=== PATIENT | male | born 1985 | race Caucasian/White ===

== ENCOUNTER 2025-08-29 09:14 | Inpatient (IN) | payer SELFPAY ==
[~2025-08-29] VITALS: Ht 175.3 cm; Wt 70.3 kg
[2025-08-29 09:17] VITALS: O2SAT 93
[2025-08-29] MEDS: SODIUM CHLORIDE 0.9% 1,000 ML IV ONE ×2 (09:57→12:10)
[2025-08-29 10:10] LABS: BASOPHILS % 0.3 % (0.0-2.0); EOSINOPHILS % 0.3 % (0.0-5.0); HEMATOCRIT. 41.9 % (42.0-52.0); HEMOGLOBIN. 13.9 g/dL (14.0-18.0); LYMPHOCYTES % 10.1 % (20.0-50.0); MEAN PLATELET VOLUME 8.4 fl (7.4-10.4); MONOCYTES % 7.1 % (2.0-8.0); NEUTROPHILS % 82.2 % (40.0-76.0); PLATELET 281 x1000/uL (130-400); RED BLOOD CELL COUNT 4.50 mill/uL (4.7-6.1); RED CELL DISTRIBUTION WIDTH 14.3 % (11.6-14.6)
[2025-08-29 10:21] LABS: CREATININE 0.7 mg/dL (0.6-1.3); TROPONIN I HIGH SENSITIVITY < 4 ng/L (3.0-53)
[2025-08-29 10:22] LABS: ASPARTATE AMINOTRANSFERASE 43 IU/L (<34); PROTEIN TOTAL 6.3 g/dL (6.0-8.3); UREA NITROGEN BLOOD 7 mg/dL (9-23)
[2025-08-29 10:23] LABS: BILIRUBIN DIRECT 0.2 mg/dL (<=3.0)
[2025-08-29 10:24] LABS: BILIRUBIN TOTAL 1.0 mg/dL (0.1-1.0)
[2025-08-29] MEDS ORDERED: DOCUSATE SODIUM 100MG CAPSULE PO PRN (12:00)
[2025-08-29] MEDS ORDERED: ONDANSETRON HCL 4MG/2ML INJ IV PRN (12:00)
[2025-08-29] MEDS ORDERED: IPRATROPIUM/ALBUTEROL 0.5-3(2.5)MG/3ML NEB HHN PRN (12:00)
[2025-08-29] MEDS ORDERED: CLONIDINE 0.1MG TABLET PO PRN (12:00)
[2025-08-29] MEDS ORDERED: ACETAMINOPHEN 325MG TABLET PO PRN ×2 (12:00)
[2025-08-29] MEDS ORDERED: GUAIFENESIN 200MG/10ML SUGAR FREE UDC PO PRN (12:00)
[2025-08-29] MEDS ORDERED: INSULIN REGULAR (HUMULIN R) 1000UNITS/10ML VIAL IV NR (12:30)
[2025-08-29] MEDS ORDERED: LORAZEPAM 1MG TABLET PO PRN (12:30)
[2025-08-29] MEDS ORDERED: DEXTROSE 50% WATER 50ML SYRINGE IV NR (12:30)
[2025-08-29 16:00] VITALS: BP 111/76; PULSE 73; RESP 17; TEMP 36.1; O2SAT 97
[2025-08-29] MEDS ORDERED: LORAZEPAM 2MG/ML UD SYRINGE IV PRN (16:15)
[2025-08-29] MEDS: DEXT 5%/0.9% NACL 1,000 ML IV SCH (16:15)
[2025-08-29 16:35] VITALS: BP 120/77; PULSE 68; RESP 17; TEMP 36.14
[2025-08-29] MEDS: ENOXAPARIN 40MG/0.4ML SYR SUBCUT SCH (17:00)
[2025-08-29] MEDS: DEXTROSE 50% WATER 50ML SYRINGE IV SCH (17:08)
[2025-08-29] MEDS: INSULIN REGULAR (HUMULIN R) 1000UNITS/10ML VIAL IV SCH (17:17)
[2025-08-29 20:00] VITALS: BP 128/58; PULSE 59; RESP 20; TEMP 36.3; O2SAT 99
[2025-08-30] VITALS: BP 91/62; PULSE 66; RESP 20; TEMP 36.4; O2SAT 98
[2025-08-30 04:00] VITALS: BP 115/63; PULSE 64; RESP 18; TEMP 36.5; O2SAT 97
[2025-08-30 06:03] LABS: BASOPHILS % 0.6 % (0.0-2.0); EOSINOPHILS % 1.2 % (0.0-5.0); HEMATOCRIT. 39.0 % (42.0-52.0); HEMOGLOBIN. 13.1 g/dL (14.0-18.0); LYMPHOCYTES % 20.3 % (20.0-50.0); MEAN PLATELET VOLUME 8.1 fl (7.4-10.4); MONOCYTES % 10.2 % (2.0-8.0); NEUTROPHILS % 67.7 % (40.0-76.0); PLATELET 279 x1000/uL (130-400); RED BLOOD CELL COUNT 4.27 mill/uL (4.7-6.1); RED CELL DISTRIBUTION WIDTH 14.2 % (11.6-14.6)
[2025-08-30 06:21] LABS: T4 FREE 1.15 ng/dL (0.89-1.76)
[2025-08-30 06:28] LABS: CREATININE 0.7 mg/dL (0.6-1.3)
[2025-08-30 06:29] LABS: TRIGLYCERIDE 44 mg/dL (0-150); UREA NITROGEN BLOOD 6 mg/dL (9-23)
[2025-08-30 06:30] LABS: LDL CHOLESTEROL 22 mg/dL (5-100)
[2025-08-30 08:00] VITALS: BP 108/73; PULSE 90; RESP 18; TEMP 36.1; O2SAT 98
[2025-08-30] MEDS: PANTOPRAZOLE SODIUM 40 MG/VIAL IV SCH (09:00)
[2025-08-30] MEDS: MULTIVITAMINS,THER W-MINERALS TABLET PO SCH (11:50)
[2025-08-30] MEDS: FOLIC ACID 1MG TABLET PO SCH (11:50)
[2025-08-30] MEDS: KCL 20MEQ/100ML PREMIX 100 ML IV SCH (11:51)
[2025-08-30] MEDS: THIAMINE HCL 100MG TABLET PO SCH (11:51)
[2025-08-30 12:00] VITALS: BP 107/60; PULSE 55; RESP 18; TEMP 36.1; O2SAT 98
[2025-08-30 16:00] VITALS: BP 103/57; PULSE 104; RESP 18; TEMP 36.2; O2SAT 97
[2025-08-30 20:00] VITALS: BP 118/73; PULSE 81; RESP 18; TEMP 36.6; O2SAT 99
[2025-08-31] VITALS: BP 113/73; PULSE 64; RESP 19; TEMP 36.8; O2SAT 98
[2025-08-31 04:00] VITALS: BP 116/71; PULSE 68; RESP 18; TEMP 36.9; O2SAT 95
[2025-08-31 07:45] LABS: BASOPHILS % 0.5 % (0.0-2.0); EOSINOPHILS % 0.5 % (0.0-5.0); HEMATOCRIT. 39.3 % (42.0-52.0); HEMOGLOBIN. 13.1 g/dL (14.0-18.0); LYMPHOCYTES % 9.7 % (20.0-50.0); MEAN PLATELET VOLUME 8.6 fl (7.4-10.4); MONOCYTES % 8.0 % (2.0-8.0); NEUTROPHILS % 81.3 % (40.0-76.0); PLATELET 283 x1000/uL (130-400); RED BLOOD CELL COUNT 4.26 mill/uL (4.7-6.1); RED CELL DISTRIBUTION WIDTH 14.2 % (11.6-14.6)
[2025-08-31 07:56] LABS: CREATININE 0.7 mg/dL (0.6-1.3); UREA NITROGEN BLOOD < 5 mg/dL (9-23)
[2025-08-31 07:58] LABS: PHOSPHORUS 2.4 mg/dL (2.5-4.9)
[2025-08-31 08:00] VITALS: BP 118/80; PULSE 65; RESP 17; TEMP 36.7; O2SAT 98
[2025-08-31 08:34] LABS: FOLIC ACID (FOLATE) SERUM > 20.00 ng/mL (>5.38); VITAMIN B12 SERUM 391 pg/mL (211-911)
[2025-08-31] MEDS: POTASSIUM CHLORIDE 20MEQ TABLET SR PO NR (08:59)
[2025-08-31 12:00] VITALS: BP 120/86; PULSE 61; RESP 15; TEMP 36.6; O2SAT 100
[2025-08-31] MEDS ORDERED: FOLIC ACID 1MG TABLET PO SCH (12:45)
[2025-08-31] MEDS: FERROUS SULFATE 325MG TABLET PO SCH (13:14)
[2025-08-31 16:00] VITALS: BP 116/82; PULSE 63; RESP 18; TEMP 36.7; O2SAT 99
[2025-08-31 20:00] VITALS: BP 116/76; PULSE 71; RESP 20; TEMP 36.6; O2SAT 98
[2025-09-01] VITALS: BP 116/76; PULSE 79; RESP 20; TEMP 36.6; O2SAT 98
[2025-09-01 04:00] VITALS: BP 108/73; PULSE 60; RESP 18; TEMP 36.5; O2SAT 98
[2025-09-01 08:00] VITALS: BP 138/95; PULSE 76; RESP 16; TEMP 36.6; O2SAT 98
[2025-09-01] MEDS ORDERED: MAGNESIUM 2 G PREMIX 50 ML IV ONE (09:45)
[2025-09-01 10:09] VITALS: BP 119/68; PULSE 70; RESP 16; TEMP 97.9
[2025-09-01] MEDS ORDERED: POTASSIUM PHOSPHATE 20 MMOL in DEXT 5% WATER 243.3333 ML IV ONE (10:30)
[2025-09-01] MEDS ORDERED: FAMOTIDINE 20MG TABLET PO SCH (21:00)
== END 2025-09-01 11:05 | disposition home or self-care (01) | DRG 812 ==
LOC: ER 09:41 → EDBD 11:25 → 6WST 11:25 → ENRESERV 12:10
PROVIDERS: ADMIT Hospitalist; ATTEND Hospitalist
DX: T50.991A Poisoning by other drugs, medicaments and biological substances, accidental (unintentional), initial encounter (principal); G92.8 Other toxic encephalopathy; M62.82 Rhabdomyolysis; E83.39 Other disorders of phosphorus metabolism; Z78.1 Physical restraint status; Z59.00 Homelessness unspecified; F18.90 Inhalant use, unspecified, uncomplicated; D50.9 Iron deficiency anemia, unspecified; F19.10 Other psychoactive substance abuse, uncomplicated; E87.6 Hypokalemia; D64.9 Anemia, unspecified; E83.42 Hypomagnesemia; E87.5 Hyperkalemia; Y92.89 Other specified places as the place of occurrence of the external cause
CPT/HCPCS: 36415; 80048; 80061; 80076; 80307; 80320; 80329; 82140; 82550; 82607; 82728; 82746; 83540; 83550; 83735; 83880; 84100; 84439; 84443; 84484; 85025; 85044; 96360; 99285; C1725; J1650; J1815; J2470; J3480; J3490; J7030; J7042; J7060; G0480